=== PATIENT | male | born 1960 | race Caucasian/White ===

== ENCOUNTER 2017-02-20 13:46 | Emergency (ER) | payer SELFPAY ==
[~2017-02-20] VITALS: Ht 177.8 cm; Wt 73.0 kg
[2017-02-20] MEDS ORDERED: SODIUM CHLORIDE 0.9% 1,000 ML IV ONE (15:08)
[2017-02-20] MEDS ORDERED: ASPIRIN 81 MG TABLET CHEW PO ONE (15:30)
[2017-02-20] MEDS ORDERED: MORPHINE SULFATE 4 MG/ML, 1ML IVPush PRN (15:30)
[2017-02-20] MEDS ORDERED: MORPHINE SULFATE 4 MG/ML, 1ML ONE (15:31)
[2017-02-20] MEDS ORDERED: ASPIRIN 81 MG TABLET CHEW ONE (15:31)
[2017-02-20 15:39] LABS: ASPARTATE AMINO TRANSFERASE 17 U/L (15-37); BLOOD UREA NITROGEN 9 mg/dL (7-18)
[2017-02-20 15:46] LABS: IS PT STATUS REG ER OR PRE ER? YES
[2017-02-20 16:39] VITALS: BP 148/85
== END 2017-02-20 16:51 | disposition home or self-care (01) ==
LOC: ED 16:45
DX: R07.89 Other chest pain (principal)
CPT/HCPCS: 36415; 71010; 80053; 83605; 84484; 85025; 85379; 93005; 96361; 96374; 99285; J7030